=== PATIENT | male | born 1995 ===

== ENCOUNTER 2023-11-28 11:01 | Outpatient (REF) | payer OTHER, SELFPAY ==
--- NOTE | ~2023-11-28 | XR_ITS ---
EXAMINATION: XR BOTH KNEES AP STANDING XR LEFT KNEE, 2 VIEWS XR RIGHT KNEE, 2 VIEWS CLINICAL INFORMATION: Pain in the left knee. Osteoarthritis in the right knee. COMPARISON: None available. TECHNIQUE: Standing AP view of both knees and lateral and sunrise views of each knee. FINDINGS: LEFT KNEE: No acute fracture or malalignment. There are linear tracts in the patella which likely correspond to ghost tracks from prior fixation of the fracture or tendon repair. No acute fractures. The Jasmin-Tino index is 1.6, consistent with patella jose. Trace joint effusion. Mild superficial infrapatellar edema. Small chronic ossific fragment at the medial margin of the patella. Minimal patellofemoral compartment osteoarthritis. Medial and lateral compartments are normal.. RIGHT KNEE: No fracture or joint effusion. Alignment is anatomic. Joint spaces are well maintained. No abnormal soft tissue calcification. No patella jose. XR/XR knee RT 3V IMPRESSION: 1. Left patella jose. Postsurgical changes at the left patella of prior tendon repair or fracture fixation. Trace joint effusion. 2. Minimal patellofemoral compartment osteoarthritis in the left knee. 3. Normal right knee. Electronically signed by: Basim Gordon MD 12/11/2023 11:46 PM EDT RP
--- NOTE | ~2023-11-28 | XR_ITS ---
EXAMINATION: XR BOTH KNEES AP STANDING XR LEFT KNEE, 2 VIEWS XR RIGHT KNEE, 2 VIEWS CLINICAL INFORMATION: Pain in the left knee. Osteoarthritis in the right knee. COMPARISON: None available. TECHNIQUE: Standing AP view of both knees and lateral and sunrise views of each knee. FINDINGS: LEFT KNEE: No acute fracture or malalignment. There are linear tracts in the patella which likely correspond to ghost tracks from prior fixation of the fracture or tendon repair. No acute fractures. The Jasmin-Tino index is 1.6, consistent with patella jose. Trace joint effusion. Mild superficial infrapatellar edema. Small chronic ossific fragment at the medial margin of the patella. Minimal patellofemoral compartment osteoarthritis. Medial and lateral compartments are normal.. RIGHT KNEE: No fracture or joint effusion. Alignment is anatomic. Joint spaces are well maintained. No abnormal soft tissue calcification. No patella jose. XR/XR knee LT 3V IMPRESSION: 1. Left patella jose. Postsurgical changes at the left patella of prior tendon repair or fracture fixation. Trace joint effusion. 2. Minimal patellofemoral compartment osteoarthritis in the left knee. 3. Normal right knee. Electronically signed by: Basim Gordon MD 12/11/2023 11:46 PM EDT RP
== END 2023-11-28 11:02 | disposition home or self-care (01) ==
LOC: HO.HOSX 11:01
DX: M25.562 Pain in left knee (principal); M17.11 Unilateral primary osteoarthritis, right knee
CPT/HCPCS: 73562

== ENCOUNTER 2023-11-28 11:45 | Outpatient (AMB) | payer OTHER, SELFPAY ==
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
[2023-11-28 11:49] VITALS: BMI 26.4
== END 2023-11-28 12:23 | disposition home or self-care (01) ==
LOC: HO.HOS 11:45
DX: M23.92 Unspecified internal derangement of left knee (principal); M25.561 Pain in right knee; Z04.3 Encounter for examination and observation following other accident
CPT/HCPCS: 99203

== ENCOUNTER 2023-12-25 08:02 | Outpatient (REF) | payer OTHER, SELFPAY ==
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
== END 2023-12-25 08:03 | disposition home or self-care (01) ==
LOC: HO.MRI 08:02
DX: M17.12 Unilateral primary osteoarthritis, left knee (principal)
CPT/HCPCS: 73721

== ENCOUNTER 2024-02-22 13:28 | Outpatient (AMB) | payer OTHER, SELFPAY ==
--- NOTE | 2024-02-22 13:30 | A.OFFVIS_ITS ---
Intake Visit Reasons: OV- Left knee MRI review Intake Note: Joaquina is a 28 year old male who presents today for an MRI review of his left knee done on 12/25/2023. Allergies No Known Allergies Allergy (Verified 02/22/24 13:30) [facility] OV- Left knee MRI review: Details: Patient is a 28-year-old male who presents for evaluation for left knee MRI review. Patient states that his symptoms have improved since previous evaluation, but he is still experiencing discomfort in the left knee. Patient states that his range of motion is full, but that there is pain with the extremes of range of motion. No other acute complaints or concerns at this time. [facility] Social History (Updated 11/28/23 @ 11:51 by JULISSA Daniel) Alcohol intake: current Alcohol intake frequency: a few times a month Comment: social drinking Patient Tobacco Use Status: Never used Tobacco Substance Use Type: Marijuana Current occupational status: employed Current occupation: [employer] Physical Exam Extrem Other: There is noted to be a surgical scar noted on the anterior aspect of the patient's left knee Patient's R and L knees normal to inspection No erythema, ecchymosis, edema noted No lacerations, abrasions, open areas No evidence of infection Patient reports some tenderness to palpation of the lateral joint line of the left knee, as well as of the tibial tuberosity No tenderness to palpation of the medial joint line, quad tendon, patellar tendon, posterior knee on the left noted No tenderness to palpation of the right knee noted Patient is able to extend bilateral knees to 0 degrees without difficulty Patient is able to flex bilateral knees to 130 degrees without difficulty Negative Andrea's bilaterally Negative anterior drawer bilaterally No ligamentous laxity with varus/valgus testing bilaterally Distal sensation intact Capillary refill brisk Results Reviewed Results Reviewed: MR/MR knee LT wo con IMPRESSION: 1. Postsurgical change associated with the patellar tendon. Diffuse patellar tendinosis with undersurface partial tearing at the inferior pole of the patella involving less than 50 percent of the tendon thickness. No full-thickness transverse tendon tear or tendon retraction. Borderline patella jose. 2. Mild patellofemoral arthrosis. Trace joint effusion and trace Rivera's cyst. 3. No acute meniscal or ligamentous injury. Electronically signed by: Josafat Fragoso MD 01/01/2024 01:05 PM EDT Assessment & Plan Assessment & Plan (1) Patellar tendinosis: Code(s): M76.50 - Patellar tendinitis, unspecified knee Category: Medical Plan 1. Postsurgical changes of patellar tendon and patellar tendinosis At this time, patient was informed that his MRI did not show any acute injury or surgical indication Patient expresses understanding of this and is thankful for this insight Patient was provided with an order for physical therapy to be given to [facility] for treatment of patellar tendinosis likely secondary to postsurgical changes of the patellar tendon status post repair 2 years ago Patient was amenable to this plan Patient may follow-up as needed with any acute concerns Orders: Orders PT Evaluation and Treatment Today M76.50 - Patellar tendinitis, unspecified k nee Coding Level of Care Code Est Pt Level 3 (94982) Diagnoses Patellar tendinosis M76.50
== END 2024-02-22 13:37 | disposition home or self-care (01) ==
DX: M76.50 Patellar tendinitis, unspecified knee (principal)
CPT/HCPCS: 99213